=== PATIENT | male | born 1960 | race African-American/Black ===

== ENCOUNTER 2017-06-16 19:42 | Inpatient (IN) | payer OTHER ==
[~2017-06-16] VITALS: Ht 175.3 cm; Wt 95.2 kg
--- NOTE | ~2017-06-16 | EKG ---
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: LOUISA : 1960 Requested By: Taryn Cunha Order Number: [id number] MD: Jaime Gandhi Measurements Intervals [place] Rate: 125 P: 51 ME: 122 QRS: 41 QRSD: 103 T: -87 QT: 351 QTc: 507 Interpretive Statements Incomplete tracing, repeat recommended Sinus tachycardia Probable left atrial enlargement Baseline wander in multiple lead(s) No previous ECG available for comparison Electronically Signed On 06-17-2017 16:22:26 CDT by Jaime Gandhi [email or web address] <ELECTRONICALLY SIGNED> By: Jaime Gandhi MD, [facility] 06/17/17 1622 56 56 Jaime Gandhi MD, [facility] /EPI
--- NOTE | ~2017-06-16 | HC ---
[facility] [place] [address] CONSULTATION Name: BRENT DUNN Room #: 438-P ADM IN M.R.#: [id number] Admission: 06/16/17 Attend Phys: Scarlett Martinez Discharge: Date of : 60 Report #: [id number] THIS REPORT FOR: //name// CC: FAM unknown Scarlett Martinez REASON FOR CONSULTATION: Elevated creatinine. REASON FOR THE PRESENTATION: Chest pain. HISTORY OF PRESENT ILLNESS: This is a 56-year-old with past medical history of hypertension, depression, anxiety, hyperlipidemia who presented to the Emergency Room complaining of chest pain for the last few days. He describes the pain as 10/10, constant in the central part of his chest with worsening of his symptoms with exertion. No previous similar attacks. He is not known to have any previous coronary artery disease. He is diabetic and hypertensive. On presentation to the Emergency Room, he was on the hypotensive side and was found to have an elevated creatinine and was admitted for further evaluation and management. No urinary symptoms. No nonsteroidal anti-inflammatory medications. PAST MEDICAL HISTORY: 1. Diabetes mellitus. 2. Hypertension. 3. Anxiety. MEDICATIONS: 1. Baclofen. 2. Metformin. 3. Lisinopril. 4. Atorvastatin. ALLERGIES: No known drug allergies. SOCIAL HISTORY: Denies drug abuse. He stated that he is an alcoholic. FAMILY HISTORY: Significant for hypertension. REVIEW OF SYSTEMS: CONSTITUTIONAL: No fever or chills. CARDIOVASCULAR: As per the history of present illness. PULMONARY: No shortness of breath, no hemoptysis. GASTROINTESTINAL: No abdominal pain, no nausea, no vomiting. GENITOURINARY: No frequency, no urgency. SKIN: No rash or ulcerations. NEUROLOGICAL: Significant for weakness. [facility] [address] [place] [address] CONSULTATION Name: BRENT DUNN Room #: 438-P [facility] IN M.R.#: [id number] Admission: 06/16/17 Attend Phys: Scarlett Martinez Discharge: Date of : 60 Report #: [id number] PHYSICAL EXAMINATION: GENERAL: He is alert, oriented, in no apparent distress. VITAL SIGNS: Pulse rate is 99, blood pressure yesterday was 88/50. Blood pressure right now is 110/60. HEAD AND NECK: No jugular venous distention, no bruit, no thyromegaly. CHEST: Clear to auscultation bilaterally. CARDIOVASCULAR: Regular with no rub detected. ABDOMEN: Soft, nontender with no hepatosplenomegaly. LOWER EXTREMITIES: No edema with intact peripheral pulses. LABORATORY VALUES: Reviewed. His creatinine is actually down from 3.5 to 3. He has a little bit of hyponatremia at 133. Urine showed +1 ketone with red blood cells and white blood cells. Cultures are pending. Imaging including his chest x-ray reviewed. ASSESSMENT, IMPRESSION, PLAN: 1. Acute kidney injury due to metformin and lisinopril while hypotensive. 2. History of alcohol abuse. 3. Hypertension. 4. Hyperlipidemia. 5. Depression. 6. Continue with hydration. 7. Obtain basic lab workup. 8. Strict input and output. 9. Discontinue baclofen. 10. Expect his numbers to improve within the next few days; however, we will need to obtain his previous laboratory values to know his baseline. <ELECTRONICALLY SIGNED> By: Sweetie Martin MD 06/18/17 2146 1227 0011 Sweetie Martin MD /nt
[~2017-06-16 19:42] MED LIST: ATIVAN1 MG PO; ATORVASTATIN CA20 MG; CELEXA20 MG; METFORMIN HCL500 MG; PRILOSEC20 MG; PRINIVIL20 MG
[2017-06-16 19:49] VITALS: BP 88/50
[2017-06-16] MEDS ORDERED: LIORESAL 10 MG10 MG PO (20:43)
[2017-06-16 20:47] LABS: ABSOLUTE NEUTROPHILS 4.8 thou/uL (1.4-8.2); BASOPHILS 0.6 % (0.0-2.0); EOSINOPHILS 1.3 % (0.0-3.0); HEMATOCRIT 35.9 % (42.0-52.0); HEMOGLOBIN 12.5 gm/dL (14.0-18.0); LYMPHOCYTES 37.7 % (24.0-44.0); MCH 32.4 pg (26.0-34.0); MCHC 34.7 g/dL (28.0-37.0); MCV 93.5 fL (80.0-100.0); MONOCYTES 8.6 % (1.0-8.0); PLATELET COUNT 266 thou/uL (150-400); POLYS 51.8 % (36.0-66.0); RBC 3.84 mil/uL (4.50-6.00); RDW 13.4 % (10.5-14.5); WBC 9.3 thou/uL (4.0-11.0)
[2017-06-16 20:50] LABS: MANUAL DIFF NO
[2017-06-16 20:55] LABS: ANION GAP 19 mmol/L (7-16); BUN 32 mg/dL (7-18); CALCIUM 10.1 mg/dL (8.5-10.1); CHLORIDE 96 mmol/L (98-107); CO2 17 mmol/L (21-32); CREATININE 3.5 mg/dL (0.7-1.3); GLUCOSE 207 mg/dL (74-106); POTASSIUM 3.9 mmol/L (3.5-5.1); SODIUM 132 mmol/L (136-145)
[2017-06-16 21:03] LABS: TROPONIN-I < 0.04 ng/mL (<0.04-0.07)
[2017-06-16 21:23] LABS: URINE BILIRUBIN NEGATIVE (Negative); URINE BLOOD 1+ (Negative); URINE COLOR YELLOW; URINE GLUCOSE-RANDOM* TRACE (Negative); URINE KETONES 1+ (Negative); URINE LEUKOCYTES-REFLEX NEGATIVE (Negative); URINE PROTEIN (DIPSTICK) 2+ (Negative); URINE SPECIFIC GRAVITY >= 1.030 (1.003-1.035); URINE UROBILINOGEN 0.2 E.U./dl (0.2-1.0)
[2017-06-16 21:34] LABS: HYALINE CASTS 4-10 Moderate /LPF (None Seen)
[2017-06-16 21:35] LABS: SQUAMOUS None Seen /LPF (0-3); URINE WBC-REFLEX 6-15 Few /HPF (0-5)
[2017-06-16 21:36] LABS: CRYSTALS None Seen /LPF (None Seen); URINE RBC 3-10 Few /HPF (0-2)
[2017-06-16 23:44] VITALS: BP 140/92
[2017-06-17] VITALS (7 sets, daily range): BP systolic 116–165; BP diastolic 61–78
[2017-06-17 05:10] LABS: ALBUMIN 3.9 g/dL (3.4-5.0); ALKALINE PHOSPHATASE 117 U/L (46-116); ANION GAP 12 mmol/L (7-16); BUN 31 mg/dL (7-18); CALCIUM 9.5 mg/dL (8.5-10.1); CHLORIDE 97 mmol/L (98-107); CHOLESTEROL 146 mg/dL (<200); CO2 24 mmol/L (21-32); DIRECT BILIRUBIN 0.1 mg/dL (<0.1-0.3); GLUCOSE 206 mg/dL (74-106); HDL CHOLESTEROL 78 mg/dL (>40); LDL CHOLESTEROL 53 mg/dL (<100); MAGNESIUM 1.8 mg/dL (1.8-2.4); POTASSIUM 4.2 mmol/L (3.5-5.1); SGOT 47 U/L (15-37); SGPT 64 U/L (30-65); SODIUM 133 mmol/L (136-145); TC:HDL 1.9 Ratio (Not establshd); TOTAL BILIRUBIN 0.4 mg/dL (<0.1-1.0); TOTAL PROTEIN 7.4 g/dL (6.4-8.2); TRIGLYCERIDE 75 mg/dL (<150); VLDL 15 mg/dL (<40)
[2017-06-17 10:53] LABS: URINE POTASSIUM-RANDOM* 42.4 mmol/L
[2017-06-18] VITALS (7 sets, daily range): BP systolic 110–149; BP diastolic 70–87
[2017-06-18 02:06] LABS: GLYCOHEMOGLOBIN (HGB A1C) 6.5 % (4.8-5.6)
[2017-06-18 08:01] LABS: ALBUMIN 3.3 g/dL (3.4-5.0); CALCIUM 8.1 mg/dL (8.5-10.1); PHOSPHORUS 2.3 mg/dL (2.5-4.9); POTASSIUM 4.6 mmol/L (3.5-5.1)
[2017-06-18 08:02] LABS: CREATININE 1.3 mg/dL (0.7-1.3)
[2017-06-19 03:09] VITALS: BP 138/79
[2017-06-19 03:33] LABS: ALBUMIN 3.4 g/dL (3.4-5.0); CALCIUM 8.1 mg/dL (8.5-10.1); CREATININE 1.2 mg/dL (0.7-1.3); PHOSPHORUS 2.5 mg/dL (2.5-4.9); POTASSIUM 4.5 mmol/L (3.5-5.1)
[2017-06-19 08:00] VITALS: BP 137/98
[2017-06-19] MEDS ORDERED: NORVASC10 MG PO (09:52)
[2017-06-19 10:01] VITALS: BP 137/98
== END 2017-06-19 12:14 | disposition home or self-care (01) | DRG 683 ==
LOC: ER 19:42 → EROBS 23:20 → 4S 23:20 → ENTRNSPT 06-19 11:11 → EDTRNSPTSTS 06-19 11:23 → 4S 06-19 12:14
PROVIDERS: Emergency Medicine; Hospitalist; Nurse Practitioner Acute Care
DX: N17.0 Acute kidney failure with tubular necrosis (principal); E87.2 Acidosis; F10.10 Alcohol abuse, uncomplicated; I10 Essential (primary) hypertension; E78.00 Pure hypercholesterolemia, unspecified; K21.9 Gastro-esophageal reflux disease without esophagitis; E11.40 Type 2 diabetes mellitus with diabetic neuropathy, unspecified; F41.9 Anxiety disorder, unspecified; E78.5 Hyperlipidemia, unspecified; I95.1 Orthostatic hypotension; F32.9 Major depressive disorder, single episode, unspecified; T38.3X5A Adverse effect of insulin and oral hypoglycemic [antidiabetic] drugs, initial encounter; Z90.49 Acquired absence of other specified parts of digestive tract; Z79.899 Other long term (current) drug therapy; Z82.49 Family history of ischemic heart disease and other diseases of the circulatory system; Y92.89 Other specified places as the place of occurrence of the external cause; Z71.41 Alcohol abuse counseling and surveillance of alcoholic; Z79.4 Long term (current) use of insulin; R07.89 Other chest pain
CPT/HCPCS: 10100